=== PATIENT | male | born 1945 | race Caucasian/White ===

== ENCOUNTER 2021-12-05 06:36 | Day surgery (SDC) | payer MEDICARE ==
[~2021-12-05 06:36] MED LIST: Lactated Ringers 1,000 ML IV SCH; Sodium Chloride 0.9% 10 ML Syringe FLUSH PRN
[2021-12-05] MEDS ORDERED: ePHEDrine 50 MG/ML SDV IV ONE (06:37)
[2021-12-05] MEDS ORDERED: Propofol 200 MG/20 ML SDV IV ONE (06:37)
[2021-12-05 10:36] VITALS: BP 102/53; PULSE 74
== END 2021-12-05 09:30 | disposition home or self-care (01) ==
LOC: FB.SDS 06:36
PROVIDERS: ATTEND Surgery
DX: Z12.11 Encounter for screening for malignant neoplasm of colon (principal); K63.5 Polyp of colon; K52.9 Noninfective gastroenteritis and colitis, unspecified; K57.30 Diverticulosis of large intestine without perforation or abscess without bleeding; K62.7 Radiation proctitis; I48.91 Unspecified atrial fibrillation; I25.10 Atherosclerotic heart disease of native coronary artery without angina pectoris; I11.0 Hypertensive heart disease with heart failure; I50.9 Heart failure, unspecified; M10.9 Gout, unspecified; G47.33 Obstructive sleep apnea (adult) (pediatric); I25.2 Old myocardial infarction; Z98.890 Other specified postprocedural states; Z87.891 Personal history of nicotine dependence; Z80.0 Family history of malignant neoplasm of digestive organs; Z86.010 Personal history of colon polyps; Z79.899 Other long term (current) drug therapy
CPT/HCPCS: 00812-QZ; 88305; J2704; J7120

== ENCOUNTER 2023-01-31 06:21 | Day surgery (SDC) | payer MEDICARE ==
[2023-01-31] MEDS ORDERED: Simethicone Drops 40 MG/0.6 ML 30 ML Bottle PO ONE (10:20)
[2023-01-31] MEDS ORDERED: Phenylephrine 1% 10 MG/ML SDV IV ONE (13:01)
[2023-01-31] MEDS ORDERED: Propofol 200 MG/20 ML SDV IV ONE (13:01)
[2023-01-31] MEDS ORDERED: Lactated Ringers 1,000 ML IV ONE (13:01)
[2023-01-31 14:57] VITALS: BP 129/63; PULSE 71
== END 2023-01-31 12:01 | disposition home or self-care (01) ==
LOC: FB.SDS 06:21
PROVIDERS: ATTEND Surgery
DX: K63.5 Polyp of colon (principal); K57.30 Diverticulosis of large intestine without perforation or abscess without bleeding; K62.7 Radiation proctitis; M10.9 Gout, unspecified; L65.9 Nonscarring hair loss, unspecified; G47.33 Obstructive sleep apnea (adult) (pediatric); I11.0 Hypertensive heart disease with heart failure; I50.9 Heart failure, unspecified; I48.91 Unspecified atrial fibrillation; Z79.82 Long term (current) use of aspirin; Z79.899 Other long term (current) drug therapy; Z87.891 Personal history of nicotine dependence
CPT/HCPCS: 00812; 88305; A9270-GY; J2370; J2704; J7120

== ENCOUNTER 2024-02-06 21:01 | Emergency (ER) | payer MEDICARE ==
[2024-02-06] MEDS ORDERED: Sodium Chloride 0.9% 10 ML Syringe FLUSH PRN (21:09)
[2024-02-06 21:18] VITALS: BP 102/63; PULSE 70
[2024-02-06 21:35] LABS: BASOPHILS PERCENT AUTO 0.9 % (0.3-3.8); BLOOD UREA NITROGEN,BUN 14 mg/dL (7-18); CARBON DIOXIDE,CO2 28 mmol/L (21-32); CHLORIDE,CL 100 mmol/L (100-110); EOSINOPHILS ABSOLUTE AUTO 0.2 x10-3/uL (0.0-0.6); EOSINOPHILS PERCENT AUTO 4.5 % (0.1-6.8); ESTIMATED GFR 76 mL/min (>60); GLUCOSE RANDOM 113 mg/dL (80-116); HEMATOCRIT 40.2 % (38.3-50.1); HEMOGLOBIN 13.6 g/dL (12.9-17.7); LYMPHOCYTES ABSOLUTE AUTO 1.1 x10-3/uL (0.5-4.5); LYMPHOCYTES PERCENT AUTO 21.9 % (15.8-45.3); MEAN CORPUSCULAR HEMOGLOBIN 31.6 pg (27.0-33.3); MEAN CORPUSCULAR HGB CONC 33.7 g/dL (28.7-35.3); MEAN CORPUSCULAR VOLUME 93.8 fL (80.8-98.7); MEAN PLATELET VOLUME 8.9 fL (6.7-11.0); MONOCYTES ABSOLUTE AUTO 0.4 x10-3/uL (0.0-1.2); MONOCYTES PERCENT AUTO 7.7 % (5.5-15.2); NEUTROPHILS ABSOLUTE AUTO 3.1 x10-3/uL (1.7-6.9); PLATELET COUNT,PLT 162 x10(3)uL (117-477); POTASSIUM,K 4.5 mmol/L (3.5-5.3); RED BLOOD CELL COUNT 4.29 x10(6)uL (3.90-5.90); RED CELL DISTRIBUTION WIDTH 14.1 % (12.4-15.0); SODIUM,NA 140 mmol/L (135-145); WHITE BLOOD CELL COUNT,WBC 4.9 x10-3/uL (3.2-10.1)
[2024-02-06 21:41] LABS: ALANINE AMINOTRANSFERASE,ALT 43 U/L (12-36); ALBUMIN 3.9 g/dL (3.2-4.6); ALKALINE PHOSPHATASE 104 IU/L (56-112); ASPARTATE AMNIOTRANSFERASE,AST 29 IU/L (5-25); BILIRUBIN TOTAL 0.7 mg/dL (0.1-1.3); PROTEIN TOTAL,TP 7.8 g/dL (6.0-8.0)
[2024-02-06 21:47] LABS: TROPONIN I 20.1 pg/mL (4.0-60.3)
[2024-02-06 21:53] LABS: PROTHROMBIN TIME 10.4 sec (9.0-11.1)
[2024-02-06 22:52] LABS: BILIRUBIN,URINE NEGATIVE (NEGATIVE); GLUCOSE,URINE NORMAL (NORMAL); KETONES,URINE NEGATIVE (NEGATIVE); LEUKOCYTE ESTERASE,URINE NEGATIVE (NEGATIVE); NITRITE,URINE NEGATIVE (NEGATIVE); OCCULT BLOOD,URINE NEGATIVE (NEGATIVE); PROTEIN,URINE NEGATIVE (NEGATIVE); UROBILINOGEN,URINE NORMAL (NEGATIVE)
[2024-02-06 22:59] LABS: APPEARANCE,URINE CLEAR (CLEAR); BACTERIA,URINE OCCASIONAL (NS); COLOR,URINE YELLOW (YELLOW); RBC,URINE 0-5 (0-5); SQUAMOUS EPITHELIAL CELLS,UR OCCASIONAL (NS,R,O); WBC,URINE 0-5 (0-5)
== END 2024-02-06 23:55 | disposition home or self-care (01) ==
LOC: FB.ED 21:01
DX: S20.212A Contusion of left front wall of thorax, initial encounter (principal); S09.90XA Unspecified injury of head, initial encounter; I48.91 Unspecified atrial fibrillation; I50.9 Heart failure, unspecified; E78.00 Pure hypercholesterolemia, unspecified; I11.0 Hypertensive heart disease with heart failure; I25.2 Old myocardial infarction; E66.9 Obesity, unspecified; Z79.899 Other long term (current) drug therapy; Z79.82 Long term (current) use of aspirin; Z68.28 Body mass index [BMI] 28.0-28.9, adult; W19.XXXA Unspecified fall, initial encounter
CPT/HCPCS: 36415; 70450; 71101-LT; 80053; 81001; 83880; 84484; 85025; 85610; 85730; 93005; 93010; 99283; 99285